=== PATIENT | female | born 2005 | race Caucasian/White ===

== ENCOUNTER 2024-11-14 16:20 | Emergency (ER) | payer SELFPAY ==
[~2024-11-14] VITALS: Ht 165.1 cm; Wt 95.0 kg
[2024-11-14 16:28] VITALS: TEMP 98.6
[2024-11-14 17:47] VITALS: BP 119/71; PULSE 60; RESP 18; O2SAT 97
[2024-11-14] MEDS: PERTUSS(ACELL),DIPH,TET/PF 0.5 ML SYRINGE [ADULT] IM. ONE (17:57)
[2024-11-14] MEDS: IBUPROFEN 600 MG TABLET PO ONE (17:57)
[2024-11-14] MEDS ORDERED: CEPH-558 PO (21:17)
[2024-11-14] MEDS ORDERED: IBUP-1492 PO (21:17)
[2024-11-14] MEDS: CEPHALEXIN MONOHYDRATE 500 MG CAPSULE PO ONE (21:24)
== END 2024-11-14 21:29 | disposition home or self-care (01) ==
LOC: EMS 16:20
DX: S90.812A Abrasion, left foot, initial encounter (principal); X58.XXXA Exposure to other specified factors, initial encounter; Y92.832 Beach as the place of occurrence of the external cause; Y93.01 Activity, walking, marching and hiking; Y99.8 Other external cause status
CPT/HCPCS: 90471; 90715; 96372; 99283